=== PATIENT | female | born 1985 | race Caucasian/White ===

== ENCOUNTER 2017-04-17 02:25 | Emergency (ER) | payer MEDICAID ==
[~2017-04-17] VITALS: Ht 165.1 cm; Wt 100.1 kg
[2017-04-17 02:35] VITALS: Ht 165.1 cm; Wt 100.1 kg
[2017-04-17] MEDS ORDERED: morphine 4 MG/ML VIAL IV STA (06:47)
[2017-04-17] MEDS ORDERED: ONDANSETRON 4 MG INJ IV STA (06:47)
--- NOTE | 2017-04-17 07:27 | RADRPT ---
PROCEDURE: CT Abdomen and Pelvis without contrast. CLINICAL INDICATION: Abdominal pain. TECHNIQUE: Routine tomographic images of the abdomen and pelvis were obtained from the domes of th e diaphragm to the symphysis pubis. The patient was scanned withoutoral or intravenous contrast. C oronal and sagittal reformatted images were obtained from the axial source images. Images were revie wed on a high-resolution PACS workstation. The total exam CTDI equals 22.34 mGy and the total exam D LP equals 1340.53 mGy-cm. One or more of the following dose reduction techniques were used: Automa fili exposure control, adjustment of the mA and / or kV according to patient size, or use of iterativ e reconstruction technique. COMPARISON: None. FINDINGS: The visualized portions of the lung bases are clear. Evaluation of the intra-abdominal solid org ans is limited on this noncontrast examination. The liver appears normal in size. There is no intr a or extrahepatic biliary dilatation. The liver parenchyma demonstrates diffuse hypoattenuation. The gallbladder is unremarkable by CT criteria. The spleen, pancreas, and adrenal glands are unremarka ble. The kidneys are symmetric in size. There is mild right hydronephrosis and proximal hydroureter. Ther e is a 5 mm calculus measuring 780 HU at the right UPJ. No perinephric inflammatory changes are iden tified. There is a 1.2 cm cyst within the mid pole of the left kidney. The urinary bladder is gross ly unremarkable. The bowel demonstrates normal course and caliber. There is no evidence of bowel obstruction. The appendix is normal in appearance. Diverticula are seen within the transverse colon. No intraperitone al free fluid, free air or abscess is identified. There is a 3.2 cm left ovarian cyst. The uterus a nd adnexa are otherwise unremarkable. The aorta is normal in caliber. No retroperitoneal, mesenter ic, or inguinal lymphadenopathy is identified. The osseous structures are unremarkable. No significant subcutaneous soft tissue abnormalities are seen. IMPRESSION: 1. Obstructing 5 mm calculus at the right UPJ measuring 780 HU with mild right hydronephrosis and p roximal hydroureter. No additional renal, ureteral or bladder calculi are seen. 2. Colonic diverticulosis. 3. 3.2 cm left ovarian cyst. 4. Hepatic steatosis. RPTAT: .Linda Stephens MD, MD Date Time Electronically viewed and signed by .Linda Stephens MD, MD on 04/17/2017 07:27 .G/
--- NOTE | 2017-04-17 07:35 | ERD ---
ER Documentation Chief Complaint Chief Complaint Rt flank pain [id number], worse today. +hematuria HPI This is a 32-year-old female who presents the emergency department today complaining of right-sided back pain and right-sided abdominal pain for the past 3 weeks that is worse today. States she has had 3 instances of blood in her urine. States he has a history of diverticulitis and constipation. States she went to [facility] a couple of weeks ago and they did an ultrasound and told her that nothing was wrong. Denies any fevers or chills, vomiting. ROS All systems reviewed and are negative except as per history of present illness. Medications Home Meds Active Scripts Tamsulosin Hcl* (Flomax*) 0.4 Mg Cap.er.24h, 0.4 MG PO QPM, #30 CAP Prov:CHAN ALMONTE PA-C 04/17/17 Naproxen* (Naprosyn*) 500 Mg Tablet, 500 MG PO BID Y for PAIN AND/OR INFLAMMATION, #30 TAB Prov:CHAN ALMONTE PA-C 04/17/17 Ondansetron Hcl* (Zofran*) 4 Mg Tablet, 4 MG PO Q6H for NAUSEA AND/OR VOMITING, #30 TAB Prov:CHAN ALMONTE PA-C 04/17/17 Hydrocodone/Acetaminophen ([place] 5-325 Tablet) 1 Each Tablet, 1 TAB PO Q6H Y for PAIN, #12 TAB Prov:CHAN ALMONTE PA-C 04/17/17 Docusate Sodium* (Colace*) 100 Mg Capsule, 100 MG PO TID, #30 CAP Prov:CHAN ALMONTE PA-C 04/17/17 Polyethylene Glycol* (Miralax*) 17 Gm Powd.pack, 17 GM PO DAILY, #15 Prov:CHAN ALMONTE PA-C 04/17/17 Allergies Allergies: Coded Allergies: No Known Allergy (Verified , 04/17/17) PMhx/Soc History of Surgery: No Anesthesia Reaction: No Hx Neurological Disorder: No Hx Respiratory Disorders: No Hx Cardiac Disorders: No Hx Psychiatric Problems: No Hx Miscellaneous Medical Probl: No Hx Alcohol Use: No Hx Substance Use: No Hx Tobacco Use: No Smoking Status: Never smoker Physical Exam Vitals Vital Signs Date Time Temp Pulse Resp B/P Pulse Ox O2 Delivery O2 Flow Rate FiO2 04/17/17 02:35 98.3 83 18 160/101 99 Physical Exam Const: obese, NAD Head: Atraumatic Eyes: Normal Conjunctiva ENT: Normal External Ears, Nose and Mouth. Neck: Full range of motion..~ No meningismus. Resp: Clear to auscultation bilaterally Cardio: Regular rate and rhythm, no murmurs Abd: Soft, diffuse right-sided abdominal pain non distended. Normal bowel sounds no specific tenderness at McBurney's. No left-sided abdominal pain Skin: No petechiae or rashes Back: No midline redness. Right-sided flank tenderness. No CVA tenderness. Ext: No cyanosis, or edema Neur: Awake and alert Psych: Normal Mood and Affect Result Diagram: 04/17/17 0710 04/17/17 0710 Results 24 hrs Laboratory Tests Test 04/17/17 07:05 04/17/17 07:10 Urine Color YELLOW Urine Clarity CLEAR Urine pH 6.0 Urine Specific [place] 1.006 Urine Ketones NEGATIVEmg/dL Urine Nitrite NEGATIVEmg/dL Urine Bilirubin NEGATIVEmg/dL Urine Urobilinogen NEGATIVEmg/dL Urine Leukocyte Esterase NEGATIVELeu/ul Urine Microscopic RBC 78/HPF Urine Microscopic WBC 2/HPF Urine Squamous Epithelial Cells FEW/HPF Urine Bacteria FEW/HPF Urine Hemoglobin 3+mg/dL Urine Glucose NEGATIVEmg/dL Urine Total Protein NEGATIVEmg/dl White Blood Count 13.210^3/ul Red Blood Count 4.8310^6/ul Hemoglobin 13.0g/dl Hematocrit 39.3% Mean Corpuscular Volume 81.4fl Mean Corpuscular Hemoglobin 26.9pg Mean Corpuscular Hemoglobin Concent 33.1g/dl Red Cell Distribution Width 13.1% Platelet Count 35482^3/UL Mean Platelet Volume 9.2fl Neutrophils % 57.3% Lymphocytes % 34.8% Monocytes % 5.6% Eosinophils % 1.1% Basophils % 0.7% Nucleated Red Blood Cells % 0.0/100WBC Neutrophils # 7.610^3/ul Lymphocytes # 4.610^3/ul Monocytes # 0.710^3/ul Eosinophils # 0.110^3/ul Basophils # 0.110^3/ul Nucleated Red Blood Cells # 0.010^3/ul Sodium Level 143mmol/L Potassium Level 4.4mmol/L Chloride Level 108mmol/L Carbon Dioxide Level 25mmol/L Anion Gap 14 Blood Urea Nitrogen 11mg/dl Creatinine 0.53mg/dl Glucose Level 125mg/dl Calcium Level 9.7mg/dl Total Bilirubin 0.2mg/dl Direct Bilirubin 0.00mg/dl Indirect Bilirubin 0.2mg/dl Aspartate Amino Transf (AST/SGOT) 29IU/L Alanine Aminotransferase (ALT/SGPT) 52IU/L Alkaline Phosphatase 100IU/L Total Protein 8.3g/dl Albumin 4.3g/dl Globulin 4.00g/dl Albumin/Globulin Ratio 1.07 Lipase 59U/L Current Medications Medications (Trade) Dose Ordered Sig/Krista Route PRN Reason Start Time Stop Time Status Last Admin Dose Admin Morphine Sulfate (morphine) 4 mg ONCE STAT IV 04/17/17 06:47 04/17/17 06:48 DC 04/17/17 07:01 Ondansetron HCl (Zofran Inj) 4 mg ONCE STAT IV 04/17/17 06:47 04/17/17 06:48 DC 04/17/17 07:01 DIAGNOSTIC IMAGING REPORT Patient: MIKHAIL REILLY : 1985 Age: 32 Sex: F MR #: [id number] DOS: 04/17/17 0647 Ordering MD: CHAN ALMONTE PA-C Location: [facility] Room/Bed: PROCEDURE: CT Abdomen and Pelvis without contrast. CLINICAL INDICATION: Abdominal pain. TECHNIQUE: Routine tomographic images of the abdomen and pelvis were obtained from the domes of the diaphragm to the symphysis pubis. The patient was scanned withoutoral or intravenous contrast. Coronal and sagittal reformatted images were obtained from the axial source images. Images were reviewed on a high-resolution PACS workstation. The total exam CTDI equals 22.34 mGy and the total exam DLP equals 1340.53 mGy-cm. One or more of the following dose reduction techniques were used: Automated exposure control, adjustment of the mA and / or kV according to patient size, or use of iterative reconstruction technique. COMPARISON: None. FINDINGS: The visualized portions of the lung bases are clear. Evaluation of the intra -abdominal solid organs is limited on this noncontrast examination. The liver appears normal in size. There is no intra or extrahepatic biliary dilatation. The liver parenchyma demonstrates diffuse hypoattenuation. The gallbladder is unremarkable by CT criteria. The spleen, pancreas, and adrenal glands are unremarkable. The kidneys are symmetric in size. There is mild right hydronephrosis and proximal hydroureter. There is a 5 mm calculus measuring 780 HU at the right UPJ. No perinephric inflammatory changes are identified. There is a 1.2 cm cyst within the mid pole of the left kidney. The urinary bladder is grossly unremarkable. The bowel demonstrates normal course and caliber. There is no evidence of bowel obstruction. The appendix is normal in appearance. Diverticula are seen within the transverse colon. No intraperitoneal free fluid, free air or abscess is identified. There is a 3.2 cm left ovarian cyst. The uterus and adnexa are otherwise unremarkable. The aorta is normal in caliber. No retroperitoneal, mesenteric, or inguinal lymphadenopathy is identified. The osseous structures are unremarkable. No significant subcutaneous soft tissue abnormalities are seen. IMPRESSION: 1. Obstructing 5 mm calculus at the right UPJ measuring 780 HU with mild right hydronephrosis and proximal hydroureter. No additional renal, ureteral or bladder calculi are seen. 2. Colonic diverticulosis. 3. 3.2 cm left ovarian cyst. 4. Hepatic steatosis. RPTAT: HH .Linda Stephens MD, Date Time Electronically viewed and signed by .Linda Stephens MD, on 04/17/2017 07 :27 .G/ CC: CHAN ALMONTE PA-C Procedures/[facility] This is a 32-year-old female presents to the emergency department today complaining of right-sided flank pain and right-sided abdominal pain for the past 3 weeks that is worse yesterday. Patient had right-sided abdominal pain and flank pain on her physical exam therefore did obtain laboratory workup as well as imaging. Laboratory workup while the elevated white blood cell count. She is not anemic. Platelets are within normal limits. UA today for infection. There is 78 microscopic white blood cells. urine test is negative CT abdomen pelvis non contrast shows an obstructing 5 mm calculus at the right UPJ measuring 780 HEU with mild right hydronephrosis and proximal hydroureter. There is no additional renal ureteral bladder calculi seen. There is colonic diverticulosis there is a 3.2 cm left ovarian cyst and hepatic steatosis. There is no evidence of bowel obstruction. Appendix is normal in appearance. There is no free air or free fluid or abscess identified Given morphine and Zofran here in the emergency department she reported feeling better. Symptoms at this time is consistent with nephrolithiasis and right-sided abdominal pain. There is no evidence to suggest acute surgical abdomen at this time. Patient is afebrile and otherwise well-appearing. She will be discharged home with a prescription for Flomax, [place], Naprosyn. Patient has a history of constipation was therefore also given MiraLAX and Colace. She has been instructed to follow-up with her primary care doctor for referral to urology specialist. I have given her a list of resources. At this time the patient is stable for discharge and outpatient management. Patient should follow up with their PCP in the next 1-2 days. They may return to the emergency department sooner for any persistent or worsening of symptoms. Patient understood and agreed with the plan. Discussed the patient with Dr. Bonner and she is in agreement with the plan. Departure Diagnosis: Primary Impression: Nephrolithiasis Additional Impression: Abdominal pain Abdominal location: right lower quadrant Qualified Code: R10.31 - Right lower quadrant abdominal pain Condition: Fair CHAN ALMONTE PA-C Apr 17, 2017 07:35
--- NOTE | 2017-04-17 07:35 | ERD ---
ER Documentation Chief Complaint Chief Complaint Rt flank pain [id number], worse today. +hematuria HPI This is a 32-year-old female who presents the emergency department today complaining of right-sided back pain and right-sided abdominal pain for the past 3 weeks that is worse today. States she has had 3 instances of blood in her urine. States he has a history of diverticulitis and constipation. States she went to [facility] a couple of weeks ago and they did an ultrasound and told her that nothing was wrong. Denies any fevers or chills, vomiting. ROS All systems reviewed and are negative except as per history of present illness. Medications Home Meds Active Scripts Tamsulosin Hcl* (Flomax*) 0.4 Mg Cap.er.24h, 0.4 MG PO QPM, #30 CAP Prov:CHAN ALMONTE PA-C 04/17/17 Naproxen* (Naprosyn*) 500 Mg Tablet, 500 MG PO BID Y for PAIN AND/OR INFLAMMATION, #30 TAB Prov:CHAN ALMONTE PA-C 04/17/17 Ondansetron Hcl* (Zofran*) 4 Mg Tablet, 4 MG PO Q6H for NAUSEA AND/OR VOMITING, #30 TAB Prov:CHAN ALMONTE PA-C 04/17/17 Hydrocodone/Acetaminophen ([place] 5-325 Tablet) 1 Each Tablet, 1 TAB PO Q6H Y for PAIN, #12 TAB Prov:CHAN ALMONTE PA-C 04/17/17 Docusate Sodium* (Colace*) 100 Mg Capsule, 100 MG PO TID, #30 CAP Prov:CHAN ALMONTE PA-C 04/17/17 Polyethylene Glycol* (Miralax*) 17 Gm Powd.pack, 17 GM PO DAILY, #15 Prov:CHAN ALMONTE PA-C 04/17/17 Allergies Allergies: Coded Allergies: No Known Allergy (Verified , 04/17/17) PMhx/Soc History of Surgery: No Anesthesia Reaction: No Hx Neurological Disorder: No Hx Respiratory Disorders: No Hx Cardiac Disorders: No Hx Psychiatric Problems: No Hx Miscellaneous Medical Probl: No Hx Alcohol Use: No Hx Substance Use: No Hx Tobacco Use: No Smoking Status: Never smoker Physical Exam Vitals Vital Signs Date Time Temp Pulse Resp B/P Pulse Ox O2 Delivery O2 Flow Rate FiO2 04/17/17 02:35 98.3 83 18 160/101 99 Physical Exam Const: obese, NAD Head: Atraumatic Eyes: Normal Conjunctiva ENT: Normal External Ears, Nose and Mouth. Neck: Full range of motion..~ No meningismus. Resp: Clear to auscultation bilaterally Cardio: Regular rate and rhythm, no murmurs Abd: Soft, diffuse right-sided abdominal pain non distended. Normal bowel sounds no specific tenderness at McBurney's. No left-sided abdominal pain Skin: No petechiae or rashes Back: No midline redness. Right-sided flank tenderness. No CVA tenderness. Ext: No cyanosis, or edema Neur: Awake and alert Psych: Normal Mood and Affect Result Diagram: 04/17/17 0710 04/17/17 0710 Results 24 hrs Laboratory Tests Test 04/17/17 07:05 04/17/17 07:10 Urine Color YELLOW Urine Clarity CLEAR Urine pH 6.0 Urine Specific [place] 1.006 Urine Ketones NEGATIVEmg/dL Urine Nitrite NEGATIVEmg/dL Urine Bilirubin NEGATIVEmg/dL Urine Urobilinogen NEGATIVEmg/dL Urine Leukocyte Esterase NEGATIVELeu/ul Urine Microscopic RBC 78/HPF Urine Microscopic WBC 2/HPF Urine Squamous Epithelial Cells FEW/HPF Urine Bacteria FEW/HPF Urine Hemoglobin 3+mg/dL Urine Glucose NEGATIVEmg/dL Urine Total Protein NEGATIVEmg/dl White Blood Count 13.210^3/ul Red Blood Count 4.8310^6/ul Hemoglobin 13.0g/dl Hematocrit 39.3% Mean Corpuscular Volume 81.4fl Mean Corpuscular Hemoglobin 26.9pg Mean Corpuscular Hemoglobin Concent 33.1g/dl Red Cell Distribution Width 13.1% Platelet Count 30909^3/UL Mean Platelet Volume 9.2fl Neutrophils % 57.3% Lymphocytes % 34.8% Monocytes % 5.6% Eosinophils % 1.1% Basophils % 0.7% Nucleated Red Blood Cells % 0.0/100WBC Neutrophils # 7.610^3/ul Lymphocytes # 4.610^3/ul Monocytes # 0.710^3/ul Eosinophils # 0.110^3/ul Basophils # 0.110^3/ul Nucleated Red Blood Cells # 0.010^3/ul Sodium Level 143mmol/L Potassium Level 4.4mmol/L Chloride Level 108mmol/L Carbon Dioxide Level 25mmol/L Anion Gap 14 Blood Urea Nitrogen 11mg/dl Creatinine 0.53mg/dl Glucose Level 125mg/dl Calcium Level 9.7mg/dl Total Bilirubin 0.2mg/dl Direct Bilirubin 0.00mg/dl Indirect Bilirubin 0.2mg/dl Aspartate Amino Transf (AST/SGOT) 29IU/L Alanine Aminotransferase (ALT/SGPT) 52IU/L Alkaline Phosphatase 100IU/L Total Protein 8.3g/dl Albumin 4.3g/dl Globulin 4.00g/dl Albumin/Globulin Ratio 1.07 Lipase 59U/L Current Medications Medications (Trade) Dose Ordered Sig/Krista Route PRN Reason Start Time Stop Time Status Last Admin Dose Admin Morphine Sulfate (morphine) 4 mg ONCE STAT IV 04/17/17 06:47 04/17/17 06:48 DC 04/17/17 07:01 Ondansetron HCl (Zofran Inj) 4 mg ONCE STAT IV 04/17/17 06:47 04/17/17 06:48 DC 04/17/17 07:01 DIAGNOSTIC IMAGING REPORT Patient: MIKHAIL REILLY : 1985 Age: 32 Sex: F MR #: [id number] DOS: 04/17/17 0647 Ordering MD: CHAN ALMONTE PA-C Location: [facility] Room/Bed: PROCEDURE: CT Abdomen and Pelvis without contrast. CLINICAL INDICATION: Abdominal pain. TECHNIQUE: Routine tomographic images of the abdomen and pelvis were obtained from the domes of the diaphragm to the symphysis pubis. The patient was scanned withoutoral or intravenous contrast. Coronal and sagittal reformatted images were obtained from the axial source images. Images were reviewed on a high-resolution PACS workstation. The total exam CTDI equals 22.34 mGy and the total exam DLP equals 1340.53 mGy-cm. One or more of the following dose reduction techniques were used: Automated exposure control, adjustment of the mA and / or kV according to patient size, or use of iterative reconstruction technique. COMPARISON: None. FINDINGS: The visualized portions of the lung bases are clear. Evaluation of the intra -abdominal solid organs is limited on this noncontrast examination. The liver appears normal in size. There is no intra or extrahepatic biliary dilatation. The liver parenchyma demonstrates diffuse hypoattenuation. The gallbladder is unremarkable by CT criteria. The spleen, pancreas, and adrenal glands are unremarkable. The kidneys are symmetric in size. There is mild right hydronephrosis and proximal hydroureter. There is a 5 mm calculus measuring 780 HU at the right UPJ. No perinephric inflammatory changes are identified. There is a 1.2 cm cyst within the mid pole of the left kidney. The urinary bladder is grossly unremarkable. The bowel demonstrates normal course and caliber. There is no evidence of bowel obstruction. The appendix is normal in appearance. Diverticula are seen within the transverse colon. No intraperitoneal free fluid, free air or abscess is identified. There is a 3.2 cm left ovarian cyst. The uterus and adnexa are otherwise unremarkable. The aorta is normal in caliber. No retroperitoneal, mesenteric, or inguinal lymphadenopathy is identified. The osseous structures are unremarkable. No significant subcutaneous soft tissue abnormalities are seen. IMPRESSION: 1. Obstructing 5 mm calculus at the right UPJ measuring 780 HU with mild right hydronephrosis and proximal hydroureter. No additional renal, ureteral or bladder calculi are seen. 2. Colonic diverticulosis. 3. 3.2 cm left ovarian cyst. 4. Hepatic steatosis. RPTAT: HH .Linda Stephens MD, Date Time Electronically viewed and signed by .Linda Stephens MD, on 04/17/2017 07 :27 .G/ CC: CHAN ALMONTE PA-C Procedures/[facility] This is a 32-year-old female presents to the emergency department today complaining of right-sided flank pain and right-sided abdominal pain for the past 3 weeks that is worse yesterday. Patient had right-sided abdominal pain and flank pain on her physical exam therefore did obtain laboratory workup as well as imaging. Laboratory workup while the elevated white blood cell count. She is not anemic. Platelets are within normal limits. UA today for infection. There is 78 microscopic white blood cells. urine test is negative CT abdomen pelvis non contrast shows an obstructing 5 mm calculus at the right UPJ measuring 780 HEU with mild right hydronephrosis and proximal hydroureter. There is no additional renal ureteral bladder calculi seen. There is colonic diverticulosis there is a 3.2 cm left ovarian cyst and hepatic steatosis. There is no evidence of bowel obstruction. Appendix is normal in appearance. There is no free air or free fluid or abscess identified Given morphine and Zofran here in the emergency department she reported feeling better. Symptoms at this time is consistent with nephrolithiasis and right-sided abdominal pain. There is no evidence to suggest acute surgical abdomen at this time. Patient is afebrile and otherwise well-appearing. She will be discharged home with a prescription for Flomax, [place], Naprosyn. Patient has a history of constipation was therefore also given MiraLAX and Colace. She has been instructed to follow-up with her primary care doctor for referral to urology specialist. I have given her a list of resources. At this time the patient is stable for discharge and outpatient management. Patient should follow up with their PCP in the next 1-2 days. They may return to the emergency department sooner for any persistent or worsening of symptoms. Patient understood and agreed with the plan. Discussed the patient with Dr. Bonner and she is in agreement with the plan. Departure Diagnosis: Primary Impression: Nephrolithiasis Additional Impression: Abdominal pain Abdominal location: right lower quadrant Qualified Code: R10.31 - Right lower quadrant abdominal pain Condition: Fair CHAN ALMONTE PA-C Apr 17, 2017 07:35
--- NOTE | 2017-04-17 07:35 | ERD ---
ER Documentation Chief Complaint Chief Complaint Rt flank pain [id number], worse today. +hematuria HPI This is a 32-year-old female who presents the emergency department today complaining of right-sided back pain and right-sided abdominal pain for the past 3 weeks that is worse today. States she has had 3 instances of blood in her urine. States he has a history of diverticulitis and constipation. States she went to [facility] a couple of weeks ago and they did an ultrasound and told her that nothing was wrong. Denies any fevers or chills, vomiting. ROS All systems reviewed and are negative except as per history of present illness. Medications Home Meds Active Scripts Tamsulosin Hcl* (Flomax*) 0.4 Mg Cap.er.24h, 0.4 MG PO QPM, #30 CAP Prov:CHAN ALMONTE PA-C 04/17/17 Naproxen* (Naprosyn*) 500 Mg Tablet, 500 MG PO BID Y for PAIN AND/OR INFLAMMATION, #30 TAB Prov:CHAN ALMONTE PA-C 04/17/17 Ondansetron Hcl* (Zofran*) 4 Mg Tablet, 4 MG PO Q6H for NAUSEA AND/OR VOMITING, #30 TAB Prov:CHAN ALMONTE PA-C 04/17/17 Hydrocodone/Acetaminophen (Chelsea 5-325 Tablet) 1 Each Tablet, 1 TAB PO Q6H Y for PAIN, #12 TAB Prov:CHAN ALMONTE PA-C 04/17/17 Docusate Sodium* (Colace*) 100 Mg Capsule, 100 MG PO TID, #30 CAP Prov:CHAN ALMONTE PA-C 04/17/17 Polyethylene Glycol* (Miralax*) 17 Gm Powd.pack, 17 GM PO DAILY, #15 Prov:CHAN ALMONTE PA-C 04/17/17 Allergies Allergies: Coded Allergies: No Known Allergy (Verified , 04/17/17) PMhx/Soc History of Surgery: No Anesthesia Reaction: No Hx Neurological Disorder: No Hx Respiratory Disorders: No Hx Cardiac Disorders: No Hx Psychiatric Problems: No Hx Miscellaneous Medical Probl: No Hx Alcohol Use: No Hx Substance Use: No Hx Tobacco Use: No Smoking Status: Never smoker Physical Exam Vitals Vital Signs Date Time Temp Pulse Resp B/P Pulse Ox O2 Delivery O2 Flow Rate FiO2 04/17/17 02:35 98.3 83 18 160/101 99 Physical Exam Const: obese, NAD Head: Atraumatic Eyes: Normal Conjunctiva ENT: Normal External Ears, Nose and Mouth. Neck: Full range of motion..~ No meningismus. Resp: Clear to auscultation bilaterally Cardio: Regular rate and rhythm, no murmurs Abd: Soft, diffuse right-sided abdominal pain non distended. Normal bowel sounds no specific tenderness at McBurney's. No left-sided abdominal pain Skin: No petechiae or rashes Back: No midline redness. Right-sided flank tenderness. No CVA tenderness. Ext: No cyanosis, or edema Neur: Awake and alert Psych: Normal Mood and Affect Result Diagram: 04/17/17 0710 04/17/17 0710 Results 24 hrs Laboratory Tests Test 04/17/17 07:05 04/17/17 07:10 Urine Color YELLOW Urine Clarity CLEAR Urine pH 6.0 Urine Specific [place] 1.006 Urine Ketones NEGATIVEmg/dL Urine Nitrite NEGATIVEmg/dL Urine Bilirubin NEGATIVEmg/dL Urine Urobilinogen NEGATIVEmg/dL Urine Leukocyte Esterase NEGATIVELeu/ul Urine Microscopic RBC 78/HPF Urine Microscopic WBC 2/HPF Urine Squamous Epithelial Cells FEW/HPF Urine Bacteria FEW/HPF Urine Hemoglobin 3+mg/dL Urine Glucose NEGATIVEmg/dL Urine Total Protein NEGATIVEmg/dl White Blood Count 13.210^3/ul Red Blood Count 4.8310^6/ul Hemoglobin 13.0g/dl Hematocrit 39.3% Mean Corpuscular Volume 81.4fl Mean Corpuscular Hemoglobin 26.9pg Mean Corpuscular Hemoglobin Concent 33.1g/dl Red Cell Distribution Width 13.1% Platelet Count 00084^3/UL Mean Platelet Volume 9.2fl Neutrophils % 57.3% Lymphocytes % 34.8% Monocytes % 5.6% Eosinophils % 1.1% Basophils % 0.7% Nucleated Red Blood Cells % 0.0/100WBC Neutrophils # 7.610^3/ul Lymphocytes # 4.610^3/ul Monocytes # 0.710^3/ul Eosinophils # 0.110^3/ul Basophils # 0.110^3/ul Nucleated Red Blood Cells # 0.010^3/ul Sodium Level 143mmol/L Potassium Level 4.4mmol/L Chloride Level 108mmol/L Carbon Dioxide Level 25mmol/L Anion Gap 14 Blood Urea Nitrogen 11mg/dl Creatinine 0.53mg/dl Glucose Level 125mg/dl Calcium Level 9.7mg/dl Total Bilirubin 0.2mg/dl Direct Bilirubin 0.00mg/dl Indirect Bilirubin 0.2mg/dl Aspartate Amino Transf (AST/SGOT) 29IU/L Alanine Aminotransferase (ALT/SGPT) 52IU/L Alkaline Phosphatase 100IU/L Total Protein 8.3g/dl Albumin 4.3g/dl Globulin 4.00g/dl Albumin/Globulin Ratio 1.07 Lipase 59U/L Current Medications Medications (Trade) Dose Ordered Sig/Krista Route PRN Reason Start Time Stop Time Status Last Admin Dose Admin Morphine Sulfate (morphine) 4 mg ONCE STAT IV 04/17/17 06:47 04/17/17 06:48 DC 04/17/17 07:01 Ondansetron HCl (Zofran Inj) 4 mg ONCE STAT IV 04/17/17 06:47 04/17/17 06:48 DC 04/17/17 07:01 DIAGNOSTIC IMAGING REPORT Patient: MIKHAIL REILLY : 1985 Age: 32 Sex: F MR #: [id number] DOS: 04/17/17 0647 Ordering MD: CHAN ALMONTE PA-C Location: [facility] Room/Bed: PROCEDURE: CT Abdomen and Pelvis without contrast. CLINICAL INDICATION: Abdominal pain. TECHNIQUE: Routine tomographic images of the abdomen and pelvis were obtained from the domes of the diaphragm to the symphysis pubis. The patient was scanned withoutoral or intravenous contrast. Coronal and sagittal reformatted images were obtained from the axial source images. Images were reviewed on a high-resolution PACS workstation. The total exam CTDI equals 22.34 mGy and the total exam DLP equals 1340.53 mGy-cm. One or more of the following dose reduction techniques were used: Automated exposure control, adjustment of the mA and / or kV according to patient size, or use of iterative reconstruction technique. COMPARISON: None. FINDINGS: The visualized portions of the lung bases are clear. Evaluation of the intra -abdominal solid organs is limited on this noncontrast examination. The liver appears normal in size. There is no intra or extrahepatic biliary dilatation. The liver parenchyma demonstrates diffuse hypoattenuation. The gallbladder is unremarkable by CT criteria. The spleen, pancreas, and adrenal glands are unremarkable. The kidneys are symmetric in size. There is mild right hydronephrosis and proximal hydroureter. There is a 5 mm calculus measuring 780 HU at the right UPJ. No perinephric inflammatory changes are identified. There is a 1.2 cm cyst within the mid pole of the left kidney. The urinary bladder is grossly unremarkable. The bowel demonstrates normal course and caliber. There is no evidence of bowel obstruction. The appendix is normal in appearance. Diverticula are seen within the transverse colon. No intraperitoneal free fluid, free air or abscess is identified. There is a 3.2 cm left ovarian cyst. The uterus and adnexa are otherwise unremarkable. The aorta is normal in caliber. No retroperitoneal, mesenteric, or inguinal lymphadenopathy is identified. The osseous structures are unremarkable. No significant subcutaneous soft tissue abnormalities are seen. IMPRESSION: 1. Obstructing 5 mm calculus at the right UPJ measuring 780 HU with mild right hydronephrosis and proximal hydroureter. No additional renal, ureteral or bladder calculi are seen. 2. Colonic diverticulosis. 3. 3.2 cm left ovarian cyst. 4. Hepatic steatosis. RPTAT: HH .Linda Stephens MD, Date Time Electronically viewed and signed by .Linda Stephens MD, on 04/17/2017 07 :27 .G/ CC: CHAN ALMONTE PA-C Procedures/[facility] This is a 32-year-old female presents to the emergency department today complaining of right-sided flank pain and right-sided abdominal pain for the past 3 weeks that is worse yesterday. Patient had right-sided abdominal pain and flank pain on her physical exam therefore did obtain laboratory workup as well as imaging. Laboratory workup while the elevated white blood cell count. She is not anemic. Platelets are within normal limits. UA today for infection. There is 78 microscopic white blood cells. urine test is negative CT abdomen pelvis non contrast shows an obstructing 5 mm calculus at the right UPJ measuring 780 HEU with mild right hydronephrosis and proximal hydroureter. There is no additional renal ureteral bladder calculi seen. There is colonic diverticulosis there is a 3.2 cm left ovarian cyst and hepatic steatosis. There is no evidence of bowel obstruction. Appendix is normal in appearance. There is no free air or free fluid or abscess identified Given morphine and Zofran here in the emergency department she reported feeling better. Symptoms at this time is consistent with nephrolithiasis and right-sided abdominal pain. There is no evidence to suggest acute surgical abdomen at this time. Patient is afebrile and otherwise well-appearing. She will be discharged home with a prescription for Flomax, Chelsea, Naprosyn. Patient has a history of constipation was therefore also given MiraLAX and Colace. She has been instructed to follow-up with her primary care doctor for referral to urology specialist. I have given her a list of resources. At this time the patient is stable for discharge and outpatient management. Patient should follow up with their PCP in the next 1-2 days. They may return to the emergency department sooner for any persistent or worsening of symptoms. Patient understood and agreed with the plan. Discussed the patient with Dr. Bonner and she is in agreement with the plan. Departure Diagnosis: Primary Impression: Nephrolithiasis Additional Impression: Abdominal pain Abdominal location: right lower quadrant Qualified Code: R10.31 - Right lower quadrant abdominal pain Condition: Fair CHAN ALMONTE PA-C Apr 17, 2017 07:35
[2017-04-17] MEDS ORDERED: DOCU-144 PO (08:12)
[2017-04-17] MEDS ORDERED: POLY17PO6 PO (08:12)
[2017-04-17] MEDS ORDERED: ONDA4TAB8 PO (08:13)
[2017-04-17] MEDS ORDERED: HYDR-906 PO (08:13)
[2017-04-17] MEDS ORDERED: NAPR-260 PO (08:14)
[2017-04-17] MEDS ORDERED: TAMS-14 PO (08:16)
[2017-04-17 08:27] VITALS: BP 118/66; PULSE 78; RESP 19; TEMP 98.3
== END 2017-04-17 08:27 | disposition home or self-care (01) ==
LOC: FTE 02:25
DX: N20.0 Calculus of kidney (principal)
CPT/HCPCS: 74176; 80053; 81001; 83690; 85025; 96374; 96375; J2270; J2405; Z7502